=== PATIENT | female | born 1960 | race Caucasian/White ===

== ENCOUNTER 2018-08-17 11:09 | Observation (INO) ==
[2018-08-17] MEDS ORDERED: Acetaminophen 325 MG TABLET PO PRN ×2 (13:18→21:50)
[2018-08-17] MEDS ORDERED: *HR* OxyCODONE Immed Rel 5 MG TABLET PO PRN ×2 (13:18→19:11)
[2018-08-17] MEDS ORDERED: Naloxone 0.4 MG/ML INJ IVP PRN ×2 (13:18→21:50)
[2018-08-17] MEDS ORDERED: OXYCODONE Oral CONC 10 MG/0.5 ML ORAL.SYG SL PRN ×3 (13:18→21:50)
[2018-08-17] MEDS ORDERED: Ondansetron 4 MG/2 ML VIAL IVP PRN ×2 (13:18→21:50)
[2018-08-17] MEDS ORDERED: *HR* HYDROcodone/Acet 5/325 mg TABLET PO PRN ×2 (13:18→21:50)
[2018-08-17] MEDS ORDERED: 0.9 % Sodium Chloride 1,000 ML IVC SCH ×2 (13:30→21:50)
--- NOTE | 2018-08-17 13:47 | Urology History & Physical ---
<Ivett Ferrari N - Last Filed: 08/17/18 13:45> Date of Encounter: 08/17/18 Time of Encounter: 13:15 Assessment and Plan (1) Ureteral stone with hydronephrosis Current Visit: Yes Status: Acute Patient is a 57-year-old female who presents with a right proximal ureteral stone and hydronephrosis. White blood cell count is reassuring, and urine culture is pending. GFR 57. I reviewed CT findings with patient at bedside. We discussed surgical risks and benefits, and patient verbalized understanding. Patient is prepared undergo a right ureteroscopic stone extraction with or without holmium laser lithotripsy, basket retrieval, and right ureteral stent placement later this evening with Dr. Moncada. Patient will remain nothing by mouth. History of Present Illness Chief complaint: right ureteral stone HPI: Ms. Pearl is a 57 year old female with a past medical history of diabetes mellitus, hypertension and hyperlipidemia who presents with a 4 x 5 mm right proximal ureteral stone and hydronephrosis. Patient presented to [facility] emergency department after she experienced sudden, severe right lower quadrant abdominal pain. Patient reports she has experienced similar episodes of pain several times over the last year or so but has not sought any medical evaluation. Patient reports pain is accompanied with nausea, vomiting and diaphoresis. Patient denies any dysuria, gross hematuria, fever, chills, incontinence or flank pain. Patient underwent a CT of the abdomen and pelvis revealing a 4 x 5 mm right proximal ureteral stone with moderate hydronephrosis and perinephric stranding. Patient reports this is her first renal stone, and she denies any known family history of renal stones. Past Med Surg Social Fam HX - Past Medical History Medical history: diabetes, hyperlipidemia, hypertension Psychiatric history: no psych history - Past Surgical History Additional surgical history: pin left ankle - Social History Smoking Status: Former smoker Alcohol use: none Drug use: none - Additional Family History Additional family history: No known documented family history of renal stones or malignancy Medications and Allergies Carvedilol [Coreg] 6.25 mg PO DAILY 08/17/18 [History] Lisinopril-HCTZ 20-12.5 [Prinzide 20-12.5] 1 each PO DAILY 08/17/18 [History] Lovastatin 40 mg PO DAILY 08/17/18 [History] metFORMIN [Glucophage] 500 mg PO BIDWM 08/17/18 [History] Allergy/AdvReac Type Severity Reaction Status Date / Time No Known Allergies Allergy Verified 08/17/18 09:42 Review of Systems - Constitutional no chills, no fatigue, no fever(s) - EENT Nose, mouth and throat: no dizziness, no headache(s) - Cardiovascular no chest pain, no diaphoresis, no dyspnea - Respiratory no cough, no dyspnea - Gastrointestinal abdominal pain, nausea, vomiting, no change in bowel habits - Genitourinary Genitourinary: no difficulty urinating, no dysuria, no flank pain, no hematuria, no urinary frequency, no urinary hesitancy, no urinary incontinence, no urinary urgency - Musculoskeletal no back pain, no muscle weakness - Integumentary no erythema, no rash - Neurological no confusion, no syncope - Psychiatric no anxiety, no confusion - Hematologic/Lymphatic no easy bleeding, no easy bruising - Allergic/Immunologic no throat swelling, no wheezing Exam - General physical appearance Present: well developed, no distress, no pain - Eyes Present: PERRL, normal ocular movement - ENT Present: normal nares, no hearing loss, no congestion - Neck Present: no masses, trachea midline, no lymphadenopathy - Respiratory Present: normal respiratory effort - Cardiovascular Cardiovascular exam IM: RRR - Abdomen Abdomen: Present: soft, non tender. Absent: distended - Integumentary Present: no rash, no abnormal pigmentation - Neurologic Present: normal coordination - Musculoskeletal Present: other (Normal posture, no pedal edema) Urology Results - Labs All other labs normal. - Imaging CT scan - abdomen: report reviewed, image reviewed CT scan - pelvis: report reviewed, image reviewed <Yemi Moncada - Last Filed: 08/17/18 17:13> Date of Encounter: 08/17/18 Assessment and Plan (1) Ureteral stone with hydronephrosis Current Visit: Yes Status: Acute agree with PA A/P. discussed stone extraction and possibility that I ma not be able to retrieve the stone requiring stent and staged procedure. all questions addressed. History of Present Illness HPI: Ms. Pearl is a 57 year old female Exam Initial Vital Signs Temp Pulse Resp BP Pulse Ox 98.4 F 70 18 178/72 96 08/17/18 13:49 08/17/18 13:49 08/17/18 13:49 08/17/18 13:49 08/17/18 13:49 Urology Results - Labs All other labs normal.
[2018-08-17] MEDS ORDERED: D5% in Water 1,000 ML IVC PRN ×2 (14:12→21:50)
[2018-08-17] MEDS ORDERED: *HR* Dextrose 50 % in Water (Syg) 50 ML SYRINGE IVP PRN ×2 (14:12→21:50)
[2018-08-17] MEDS ORDERED: Dextrose Gel 15 GM/37.5 ML TUBE PO PRN ×4 (14:12→21:50)
[2018-08-17] MEDS ORDERED: Insulin LISPRO 300 UNITS/3 ML VIAL SQ SCH (18:00)
--- NOTE | 2018-08-17 18:00 | Anesthesia Evaluation PreOp ---
Date of Encounter: 08/17/18 Time of Encounter: 17:58 - Past History Planned Operation: RIGHT USE Cardiac History: HTN, Hyperlipidemia Pulmonary History: Denies Any Significant HX LEARNING AND DEVELOPMENT SPECIALIST History: Denies Any Significant HX Other Medical History: Renal (RIGHT PROXIMAL URETERIC STONE, HYDRONEPHROSIS, DECREASED GFR), Diabetes Type II Alcohol Use: none Drug use: none Medications and Allergies Carvedilol [Coreg] 6.25 mg PO DAILY 08/17/18 [History] Lisinopril-HCTZ 20-12.5 [Prinzide 20-12.5] 1 each PO DAILY 08/17/18 [History] Lovastatin 40 mg PO DAILY 08/17/18 [History] metFORMIN [Glucophage] 500 mg PO BIDWM 08/17/18 [History] Allergy/AdvReac Type Severity Reaction Status Date / Time No Known Allergies Allergy Verified 08/17/18 09:42 - Meds/Allergy Pre-op Review Medications Reviewed: Yes Allergies Reviewed: Yes Beta Blockers on Current Med List: Yes If Beta Blockers taken, Date/Time (Last Dose taken): 0700 Anesthesia Results - Labs Laboratory Tests 08/17/18 08/17/18 10:26 10:26 Hgb 14.3 Hct 43.5 Plt Count 244 Potassium 3.7 BUN 22 H Creatinine 1.00 Est GFR (Non-Af Amer) 57 L Calcium 9.4 Anesthesia Exam Vital Signs/O2 Sat/Glucose, Most Recent Temp Pulse Resp BP Pulse Ox 98.2 F 70 16 166/82 97 08/17/18 16:09 08/17/18 16:09 08/17/18 16:09 08/17/18 16:09 08/17/18 16:09 Blood Glucose* 106 Weight: 71 KG - BMI 27 NPO (# of Hours): 8 - HEENT Mallampati: I Teeth: Missing - Cardiac Rhythm: Regular - Pulmonary Breath Sounds: bilateral Clear Respiratory Effort: Symmetrical Anesthesia Assess/Plan ASA Score: 3 Anesthetic Plan: General Monitoring Plan: Standard Monitors Recovery Plan: PACU
[2018-08-17] MEDS ORDERED: Isovue-300 50 ML VIAL ONE (18:38)
[2018-08-17] MEDS ORDERED: *HR* Promethazine 25 MG/ML VIAL IVP PRN (19:11)
[2018-08-17] MEDS ORDERED: Ondansetron 4 MG/2 ML VIAL IVP ONE (19:11)
[2018-08-17] MEDS ORDERED: Acetaminophen IV 1,000 MG/100 ML INFUS..BTL IVPB ONE (19:11)
[2018-08-17] MEDS ORDERED: *HR* HYDROmorphone (PF) 1 MG/ML SYRINGE IVP PRN (19:11)
[2018-08-17] MEDS ORDERED: Albuterol 2.5 MG/3 ML NEBULIZER IH ONE (19:11)
[2018-08-17] MEDS ORDERED: *HR* Propofol 200 MG/20 ML VIAL IVP ONE (19:14)
[2018-08-17] MEDS ORDERED: *HR* FentaNYL (PF) 100 MCG/2 ML VIAL ONE (19:14)
[2018-08-17] MEDS ORDERED: Lidocaine -MPF 2% 2 ML VIAL ONE (19:18)
[2018-08-17] MEDS ORDERED: Dexamethasone 4 MG/ML VIAL ONE (19:18)
--- NOTE | 2018-08-17 20:01 | Operative Note ---
Date of procedure: 08/17/18 Pre-op diagnosis: right proximal ureteral stone Post-op diagnosis: same Procedure: right ureteroscopic stone extraction with holmium laser lithotripsy Right retrograde pyelogram Right ureteral stent placement Anesthesia: GETA Surgeon: Yemi Moncada Was there an cataloging assistant present: No Estimated blood loss (cc): 0 Specimen: stone fragments Condition: stable Disposition: PACU Procedure in Detail: PROCEDURE IN DETAIL: Patient was taken back to the operating room, positioned supine on the operating table. Anesthesia was applied without complication. They were moved into dorsal lithotomy. Careful attention was maintained to cushion all pressure points for patient's safety. They were prepped and draped in sterile fashion. Time-out was performed with the proper patient and procedure. A 21-Ecuadorean rigid cystoscope was inserted into the bladder without difficulty. Systematic examination of bladder revealed no abnormalities. The ureteral orifice was cannulated using a 5-Ecuadorean ureteral Catheter and a retrograde pyelogram was performed using Isovue. A filling defect was identified which corresponded to the stone. At that point, a zip wire was placed through the 5-Ecuadorean and confirmed in the renal pelvis with fluoroscopy. The stone was quite impacted and the wire was difficult to pass past the stone. An 8-10 dilator was then placed over the zip wire to passively dilate the ureteral orifice. I then placed an 11/13 access sheath with minimal resistance up to the stone. A flexibel ureteroscope was inserted through the access sheath. At that point, the stone was encountered and I felt that it required fragmentation for safe extraction. A 200 micron holmium laser fiber on a setting of 8 and 800 was used to fragment the stone into multiple pieces. The fragments were individually basketed out of the access sheath with a 1.9 tipless basket. I felt all stone in the ureter was removed. A 4.8 x 26 ureteral stent was placed over the zip wire under fluoroscopy without complication. The bladder was drained. NO string was left attached to the stent.
[2018-08-17] MEDS ORDERED: Ondansetron 4 MG/2 ML VIAL ONE (20:27)
[2018-08-17] MEDS ORDERED: *HR* Metoprolol 5 MG/5 ML VIAL IVP ONE (20:29)
[2018-08-17] MEDS ORDERED: Ketorolac 30 MG/ML VIAL ONE (20:29)
[2018-08-17] MEDS ORDERED: Ringers Solution, Lactated 1,000 ML ONE (21:39)
[2018-08-17] MEDS ORDERED: Ketorolac 15 MG/ML VIAL IVP PRN (21:50)
--- NOTE | 2018-08-17 22:03 | Anesthesia Evaluation Post Op ---
Date of Encounter: 08/17/18 Time of Encounter: 21:20 - Discharge PostOp Status: Transfer Patient to floor (Patient's vital signs have been reviewed. Patient is stable postoperatively and has adequately recovered from anesthesia. Patient is determined to have stable airway patency and respiratory function including respiratory rate and oxygen saturation. Patient has a stable heart rate, blood pressure and adequate hydration. Patients mental status is acceptable. Patients temperature is appropriate. Pain and nausea are adequately controlled.)
[2018-08-18 05:08] LABS: Basophils % 0.2 %; Hematocrit 42.3 % (35.3-44.9); Hemoglobin 13.7 g/dL (11.5-15.4); Immature Granulocytes % 0.6 % (0-4); Lymphocytes # 0.7 K/mcL (0.6-4.6); Mean Corpuscular HGB Conc 32.4 g/dL (31.6-35.5); Mean Corpuscular Hemoglobin 29.1 pg (28.0-33.3); Mean Corpuscular Volume 89.8 fL (83.0-100.0); Mean Platelet Volume 9.9 fL (9.4-12.4); Monocytes # 0.1 K/mcL (0.0-1.3); Monocytes % 1.3 %; Neutrophils # 7.9 K/mcL (1.6-8.9); Platelet Count 220 K/mcL (140-400); Red Blood Count 4.71 M/mcL (3.82-4.97); Red Cell Distribution Width 12.6 % (11.5-14.5); Segmented Neutrophils % 89.9 %
[2018-08-18 05:28] LABS: BUN/Creatinine Ratio 24 (6-26); Blood Urea Nitrogen 23 mg/dL (6-20); Carbon Dioxide 26 mEq/L (23-29); Chloride 106 mEq/L (98-107); Glucose 199 mg/dL (70-105); Osmolality,Calculated 301 (280-300); Potassium 3.7 mEq/L (3.5-5.1); Sodium 141 mEq/L (136-145); eGFR For Non-African Americans > 60 (> 60)
[2018-08-18] MEDS: Insulin LISPRO 300 UNITS/3 ML VIAL SQ SCH ×2 (06:30→06:31)
[2018-08-18 07:27] VITALS: BP 136/79
[2018-08-18] MEDS ORDERED: *HR* HYDROcodone/Acet 5/325 mg TABLET PO PRN (07:36)
[2018-08-18] MEDS ORDERED: Ketorolac 15 MG/ML VIAL IVP PRN (07:36)
--- NOTE | 2018-08-18 07:44 | Urology Progress Note ---
Date of Encounter: 08/18/18 Time of Encounter: 07:42 - Assessment and Plan (1) Ureteral stone with hydronephrosis Current Visit: Yes Status: Acute Assessment and plan: stone was removed. stent needs to stay in place for 2 weeks or so. ok to discharge. will arrange outpt stent removal in the office. Progress Note Subjective: feels better Objective Initial Vital Signs Temp Pulse Resp BP Pulse Ox 98.4 F 70 18 178/72 96 08/17/18 13:49 08/17/18 13:49 08/17/18 13:49 08/17/18 13:49 08/17/18 13:49 - General physical appearance Present: well developed, no distress - Labs 08/18/18 04:54 08/18/18 04:54 Diabetes panel 08/18/18 Range/Units 04:54 Sodium 141 (136-145) mEq/L Potassium 3.7 (3.5-5.1) mEq/L Chloride 106 (98-107) mEq/L Carbon Dioxide 26 (23-29) mEq/L BUN 23 H (6-20) mg/dL Creatinine 0.95 (0.60-1.20) mg/dL Glucose 199 H (70-105) mg/dL Calcium 9.0 (8.6-10.3) mg/dL Calcium panel 08/18/18 Range/Units 04:54 Calcium 9.0 (8.6-10.3) mg/dL Pituitary panel 08/18/18 Range/Units 04:54 Sodium 141 (136-145) mEq/L Potassium 3.7 (3.5-5.1) mEq/L Chloride 106 (98-107) mEq/L Carbon Dioxide 26 (23-29) mEq/L BUN 23 H (6-20) mg/dL Creatinine 0.95 (0.60-1.20) mg/dL Glucose 199 H (70-105) mg/dL Calcium 9.0 (8.6-10.3) mg/dL Adrenal panel 08/18/18 Range/Units 04:54 Sodium 141 (136-145) mEq/L Potassium 3.7 (3.5-5.1) mEq/L Chloride 106 (98-107) mEq/L Carbon Dioxide 26 (23-29) mEq/L BUN 23 H (6-20) mg/dL Creatinine 0.95 (0.60-1.20) mg/dL Glucose 199 H (70-105) mg/dL Calcium 9.0 (8.6-10.3) mg/dL Consult Discharge Plan - Plan Referrals: Graciela Beltran, [facility] [Primary Care Provider] -
--- NOTE | 2018-08-18 08:12 | Discharge Summary ---
Orders not resulted at time of discharge: Pending orders 08/17/18 20:34 Surgical Pathology [PTH] Routine Date of Encounter: 08/18/18 Time of Encounter: 08:00 - Discharge Diagnosis (1) Ureteral stone with hydronephrosis Priority: Primary Status: Acute - Hospital Course Hospital course: Ms. Pearl is a 57 year old female who presents with a history of a right ureteral stone. On 08/17/2018, patient was taken to the operating room where she underwent right ureteroscopic stone extraction with holmium laser lithotripsy, right retrograde pyelogram, right ureteral stent placement. There were no surgical complications, and the patient tolerated the procedure well. Postoperative course was relatively unremarkable, and she was dismissed in satisfactory condition. Postoperative expectations, restrictions, activity and follow-up were discussed with patient, and patient verbalized understanding. Time spent discussing smoking cessation with patient: 3 to 10 minutes - Time Spent with Patient Total time spent providing and/or coordinating discharge services: Less than 30 minutes Procedures and tests throughout hospitalization: right ureteroscopic stone extraction with holmium laser lithotripsy Right retrograde pyelogram Right ureteral stent placement Labs on day of discharge: Labs from last 24 hours 08/18/18 08/18/18 04:54 04:54 WBC 8.7 RBC 4.71 Hgb 13.7 Hct 42.3 MCV 89.8 MCH 29.1 MCHC 32.4 RDW 12.6 Plt Count 220 MPV 9.9 Immature Gran % 0.6 Seg Neutrophils % 89.9 Lymphocytes % 8.0 Monocytes % 1.3 Eosinophils % 0.0 Basophils % 0.2 Neutrophils # 7.9 Lymphocytes # 0.7 Monocytes # 0.1 Eosinophils # 0.0 Basophils # 0.0 Sodium 141 Potassium 3.7 Chloride 106 Carbon Dioxide 26 BUN 23 H Creatinine 0.95 Est GFR ( Amer) > 60 Est GFR (Non-Af Amer) > 60 BUN/Creatinine Ratio 24 Glucose 199 H Calculated Osmolality 301 H Calcium 9.0 - Impressions ITS Impressions Retrograde Pyelogram 08/17/18 19:30 IMPRESSION: Intraprocedural fluoroscopic spot images as above. See separate procedure report for more information. D/ / Darius Flor MD / Darius Flor MD Interpreting Provider: Darius Flor MD - Discharge Medications Prescriptions: New HYDROcodone/Acet 5/325 mg [[place] 5-325 mg] 1 tab PO Q6H PRN 2 Days #8 tab PRN Reason: Pain Continued metFORMIN [Glucophage] 500 mg PO BIDWM Lovastatin 40 mg PO DAILY Lisinopril-HCTZ 20-12.5 [Prinzide 20-12.5] 1 each PO DAILY Carvedilol [Coreg] 6.25 mg PO DAILY Home Medications: Carvedilol [Coreg] 6.25 mg PO DAILY 08/17/18 [History] Lisinopril-HCTZ 20-12.5 [Prinzide 20-12.5] 1 each PO DAILY 08/17/18 [History] Lovastatin 40 mg PO DAILY 08/17/18 [History] metFORMIN [Glucophage] 500 mg PO BIDWM 08/17/18 [History] HYDROcodone/Acet 5/325 mg [[place] 5-325 mg] 1 tab PO Q6H PRN 2 Days #8 tab 08/18/18 [Rx] Allergies/Adverse Reactions: Allergy/AdvReac Type Severity Reaction Status Date / Time No Known Allergies Allergy Verified 08/17/18 09:42 Date of admission: 08/17/18 12:42 Primary care physician: Graciela Beltran CNP Discharging clinician: Ivett Ferrari Anticipated date of discharge: 08/18/18 Exam Initial Vital Signs Temp Pulse Resp BP Pulse Ox 98.4 F 70 18 178/72 96 08/17/18 13:49 08/17/18 13:49 08/17/18 13:49 08/17/18 13:49 08/17/18 13:49 - General physical appearance Present: well developed, no distress, no pain - Eyes Present: PERRL, normal ocular movement - ENT Present: normal nares, no hearing loss, no congestion - Neck Present: no masses, trachea midline, no lymphadenopathy - Respiratory Present: normal respiratory effort - Cardiovascular Cardiovascular exam IM: RRR - Abdomen Abdomen: Present: soft, non tender. Absent: distended - Integumentary Present: no rash, no abnormal pigmentation - Neurologic Present: normal coordination - Musculoskeletal Present: other (normal posture ) - Patient Status Disposition: Home, Self-Care Condition: Good Functional capacity at discharge: independent ambulation Overall status at discharge: patient is progressing back to baseline - Discharge Instructions Follow Up With: Graciela Beltran CNP [Primary Care Provider] - Yemi Moncada MD [Partnered Physician] - Additional Instructions: Call if fever greater than 101 degrees. May expect blood in the urine. May experience irritating voiding symptoms such as burning, urgency, frequency, hesitancy. May use AZO over the counter. May use Colace stool softener over the counter. Ok to shower. Ok to drive as long as you are no longer taking narcotic pain medication. Ok to return to normal activity as tolerated. [place] [facility] will contact you for follow-up appointment regarding cystoscopy and stent removal. - Diet and Activity Activity: increase activity as tolerated Diet: advance to your usual diet
[2018-08-18] MEDS ORDERED: Lisinopril-HCTZ 20-12.5mg TABLET PO SCH (09:00)
[2018-08-21 12:39] LABS: Calculi Mass 120 mg
== END 2018-08-18 10:00 | disposition home or self-care (01) ==
LOC: 2ANU
PROVIDERS: ADMIT Urology; ATTEND Urology